=== PATIENT | female | born 1935 | race Caucasian/White ===

== ENCOUNTER 2020-08-27 18:10 | Inpatient (IN) | payer MEDICARE, MEDICAID, SELFPAY ==
[2020-08-27] VITALS (8 sets, daily range): BP systolic 125–161; BP diastolic 43–88; PULSE 61–72; RESP 13–24; TEMP 36.4–36.9; O2SAT 95–99; BMI 24.7
--- NOTE | 2020-08-27 18:46 | ECG_ITS ---
[facility] Test Date: 2020-08-27 Pat Name: Asia Arroyo Department: Room: Gender: Female Engineering Laboratory Technician: : 1935 Requested By: Brandin Quinteros I Order Number: [id number] Casey MD: Jazzy Lopez M.D. Measurements Intervals [place] Rate: 68 P: 90 OR: 170 QRS: 49 QRSD: 92 T: 50 QT: 442 QTc: 472 Interpretive Statements SINUS RHYTHM WITH OCCASIONAL SUPRAVENTRICULAR PREMATURE COMPLEXES MODERATE ST DEPRESSION [0.05+ mV ST DEPRESSION] Compared to ECG 06/14/2019 09:06:16 ST (T wave) deviation now present Electronically Signed On 08-27-2020 21:46:35 NAVIGATING OFFICER by Jazzy oLpez M.D. [id number]
--- NOTE | 2020-08-27 18:46 | CTR_ITS ---
PROCEDURE INFORMATION: Exam: CT Head Without Contrast Exam date and time: 08/27/2020 6:48 PM Age: 85 years old Clinical indication: Weakness, extremity; Additional info: Symptoms of acute stroke TECHNIQUE: Imaging protocol: Computed tomography of the head without contrast. Radiation optimization: All CT scans at this facility use at least one of these dose optimization techniques: automated exposure control; mA and/or kV adjustment per patient size (includes targeted exams where dose is matched to clinical indication); or iterative reconstruction. COMPARISON: No relevant prior studies available. RADIATION DOSE METRICS: Total DLP (mGy-cm): 894.03 FINDINGS: Brain: There is a 12 x 26 mm sized oval area of hypodensity in the right basal ganglia which is worrisome for recent (acute or subacute) infarct. There is focal encephalomalacia in the right frontal lobe in keeping with chronic cortical infarct. No hemorrhage is identified. Cerebral ventricles: No ventriculomegaly. Bones/joints: Unremarkable. No acute fracture. Paranasal sinuses: Visualized sinuses are unremarkable. No fluid levels. Mastoid air cells: Visualized mastoid air cells are well aerated. Soft tissues: Unremarkable. CT/CT head wo con* [id number] IMPRESSION: 1. Acute or subacute infarct in the right basal ganglia region. 2. Old right frontal infarct. Radiation Dose CTDIVOL = (mGy): DLP = 894.03 (mGy-cm)
--- NOTE | 2020-08-27 18:46 | XR_ITS ---
WS: [id number] Portable AP upright chest, 08/27/2020 Clinical Data: stroke like symptoms Comparison: Portable chest, 06/14/2019. Findings: No nodules, masses or effusions are seen. The heart is normal. The pulmonary vascularity is not increased. No pneumonia or pneumothorax is seen. The aortic arch and descending aorta show calci fication and tortuosity. Monitor leads on the chest wall. XR/XR chest 1V portable [id number] Impression: Atherosclerosis.
[2020-08-27 19:01] LABS: Basophils # 0.1 10^3/uL (0.0-0.1); Basophils % 0.8 %; Eosinophils % 0.3 %; Hemoglobin 11.7 g/dL (11.5-15.3); Lymphocytes # 1.1 10^3/uL (0.8-4.8); Lymphocytes % 9.7 %; Mean Corpuscular HGB Conc 31.6 g/dL (30.0-36.0); Mean Corpuscular Hemoglobin 26.9 pg (28.0-34.0); Mean Corpuscular Volume 85.1 fL (81-99); Mean Platelet Volume 10.7 fL (7.4-10.4); Monocytes # 0.7 10^3/uL (0.2-0.9); Monocytes % 5.9 %; Neutrophils # 9.55 10^3/uL (1.8-7.7); Nucleated Red Blood Cells % 0 %; Platelet Count 265 10^3/cmm (130-400); Red Blood Count 4.35 10^6/uL (4.1-5.3); Red Cell Distribution Width 13.9 % (12.1-15.1); White Blood Count 11.5 10^3/uL (4.0-10.0)
[2020-08-27 19:24] LABS: Add Urine Microscopic? NO
[2020-08-27 19:24] LABS: INR 1.05 (0.8-1.2); Partial Thromboplastin Time 25.4 SECONDS (23.9-36.7)
[2020-08-27 19:27] LABS: Bilirubin Urine Neg (Negative); Blood Urine Neg (Negative); Glucose Urine UA Norm (Normal); Ketones Urine Negative (Negative); Leukocyte Esterase Urine Negative (Negative); Nitrate Urine Negative (Negative); Protein Urine Neg (Negative); Specific Gravity, Urine 1.005 (1.005-1.030); Urine Appearance Clear (CLEAR); Urine Color Yellow (Yellow); Urobilinogen Urine Norm (Negative); pH Urine 7 (5-7)
[2020-08-27 19:36] LABS: Amphetamines Screen Urine Negative (Negative); Barbiturates Screen Urine Negative (Negative); Benzodiazepines Screen Urine Negative (Negative); Cocaine Screen Urine Negative (Negative); Opiate Screen Urine Negative (Negative); PCP Screen Urine Negative (Negative); THC Screen Urine Negative (Negative)
[2020-08-27 19:37] LABS: Alanine Aminotransferase 13 U/L (0-33); Albumin Level 4.1 g/dL (3.5-5.2); Alkaline Phosphatase 65 IU/L (35-105); Anion Gap 16.4 (5-19); Aspartate Amino Transferase 18 U/L (0-32); Blood Urea Nitrogen 11 mg/dL (8-23); Calcium 8.9 mg/dL (8.5-10.5); Carbon Dioxide 26 mmol/L (22-29); Chloride 97 mmol/L (98-107); Creatinine Clr Calc Pharmacy 46.9729; Globulin 3.5 g/dL (1.3-4.6); Glucose 146 mg/dL (65-115); Osmolality Calculated 284 mOsm/kg (285-295); Potassium 3.4 mmol/L (3.5-5.1); Sodium 136 mmol/L (136-145); Total Bilirubin 0.4 mg/dL (0.15-1.2); Total Protein 7.6 g/dL (6.6-8.7)
--- NOTE | 2020-08-27 20:44 | P.HP_ITS ---
Providers/Chief Complaint Primary Care Provider: Jameel Scott MD Chief Complaint: FALL/ WEAKNESS History of Present Illness Asia Arroyo is a 85 year old female with a history of diabetes and chronic atrial fibrillation on antiarrhythmic therapy was brought to the emergency department because her son found her on the floor. Patient is reported to have fallen multiple times today. His son noted mild slurred speech, mild left fac ial droop. According to the son, patient was seen last normal yesterday late evening. CT head done in the emergency department demonstrates no acute infarct in the right basal ganglia and old right frontal infarct. Examination in the ED revealed left upper extremity weakness. Patient is considered out of the window for TPA. She is hospitalized for further management. Review of Systems Narrative: Except as documented, all other systems reviewed and negative. Medications/Allergies Home Medications Medication Instructions Recorded Confirmed Last Taken Type furosemide 40 mg tablet 40 mg PO DAILY@0700 11/04/19 08/27/20 08/27/20 History metformin 500 mg tablet 500 mg PO BID@07,18 11/04/19 08/27/20 08/27/20 History potassium chloride 20 mEq 20 meq PO DAILY@0700 11/04/19 08/27/20 08/27/20 History tablet,extended release(part/cryst) sotalol 80 mg PO BID@0700,1800 08/27/20 08/27/20 08/27/20 History Allergies Allergy/AdvReac Type Severity Reaction Status Date / Time Sulfa (Sulfonamide Allergy unk Verified 08/27/20 18:18 Antibiotics) PFSH Acute PFSH: Medical History (Updated 08/27/20 @ 23:37 by Brandin Quinteros MD, [facility] [place]) Atrial fibrillation Diabetes Diastolic CHF HTN (hypertension) Family History (Reviewed 08/27/20 @ 23:25 by Brandin Quinteros MD, [facility] [place]) Mother Diabetes Social History (Reviewed 08/27/20 @ 23:25 by Brandin Quinteros MD, [facility] [place]) Smoking and tobacco status: never smoked Alcohol intake: never Lives independently: Yes Marital status: / Vitals/I&O/Wt Last Vital Signs Temp 98.5 F 08/27/20 18:13 Pulse 72 08/27/20 20:00 Resp 21 H 08/27/20 20:00 BP 161/52 08/27/20 20:00 Pulse Ox 99 08/27/20 20:00 Weight last 48 hrs Weight 63.503 kg Physical Exam Const: COMMON NORMALS: no acute distress and patient oriented x3 GENERAL APPEARANCE: cooperative and comfortable HENMT: COMMON NORMALS: normocephalic, atraumatic, moist oral mucous membranes and oropharynx normal Eye: COMMON NORMALS: Equal, round and reactive pupils present, EOMs intact bilaterally, conjunctivae normal and no scleral icterus Neck/C-Spine: COMMON NORMALS: full ROM, no lymphadenopathy and No carotid bruits Lymph: LYMPHATIC: no lymphadenopathy noted Chest: COMMONS NORMALS: normal inspection of the chest CHEST: Yes Symmetrical chest wall rise Resp: COMMON NORMALS: normal respiratory effort, No use of accessory muscles and clear to auscultation bilaterally Cardio: COMMON NORMALS: regular rate, regular rhythm, S1 normal heart sound present and S2 normal heart sound present GI: COMMON NORMALS: Normal to inspection, nondistended, normoactive bowel sounds present, Soft to palpation, non-tender, No hepatosplenomegaly present and no bruits Back/Pelvis: COMMON NORMALS: no CVA tenderness, no thoracic nor lumbar tenderness and thoraco-lumbar ROM normal Extremity: COMMON NORMALS: normal to inspection, full ROM and no clubbing, c yanosis or edema Neuro: COMMON NORMALS: patient oriented x3 CRANIAL NERVES: Yes other (Mild left facial droop.) MOTOR EXAM: Other motor observations present (Motor in l eft upper extremity- 4/5, 5/5 in all other extremities. ) Psych: COMMON NORMALS: mental status grossly normal, Normal thought process present and cooperative SPEECH: Yes slurred (Mild slurred) Data : 08/28/20 05:01 08/28/20 05:01 A&P Assessment and plan (1) Acute CVA (cerebrovascular accident): Status: Acute (2) Atrial fibrillation: Status: Acute (3) Diabetes: Status: Acute (4) HTN (hypertension): Status: Acute (5) Diastolic CHF: Status: Acute Additional A&P Information Admit patient to the medical floor. Start aspirin and Lipitor. Start for anticoagulation for CVA given history of A. fib. Patient and son reported she was taking off anticoagulation due to melena about 2 years ago. She was supposed to do a colonoscopy but it was postponed because he went into atrial fibrillation during the day of surgery and it could not be done. Her hemoglobin is stable. At this point benefit of full anticoagulation outweighs risk of bleeding. Speech therapy and PT to evaluate for stroke protocol. Obtain echocardiogram and carotid Doppler. Check lipid profile. TSH and hemoglobin A1c. Permissive hypertension. Continue sotalol for A. fib Insulin sliding scale for glucose management. Hold Metformin. Attestations Medical Necessity Statement*: Patient presenting with fall and acute CVA. She will need to be hospitalized for further evaluation and management. She is expected to spend more than 2 midnights. Coding Level of Care Code Acute Refinery Process Engineer for g Fwd Exam Comprehensive Diagnoses Acute CVA (cerebrovascular accident) I63.9 Atrial fibrillation I48.91 Diabetes E11.9 HTN (hypertension) I10 Diastolic CHF I50.30
[2020-08-27] MEDS: ondansetron 2 mg/ML SDV 2 mL 4 MG IVP (22:09)
[2020-08-27] MEDS: morphine 4 mg/mL SDV 1 mL 2 MG IVP (22:11)
--- NOTE | 2020-08-27 23:21 | W.ED.NEUROSD ---
HPI - Neuro Symptoms/Deficit General: Chief Complaint: Fall Stated Complaint: FALL/ WEAKNESS Time Seen by Provider: 08/27/20 18:11 Source: patient and family (son) Mode of arrival: EMS Limitations: no limitations History of Present Illness: HPI Narrative: The patient is an 85-year-old female patient with a prior history of atrial fibrillation according to her son who presents to the emergency department with with complaints of right lower extremity weakness. She said she slid down her chair twice today. The first time was about 8 AM this morning and the other time was this afternoon. She was very reassured to make sure that she is stressed that she did not fall but just slid down the couch. Her son last saw her yesterday and she was fine. Today he said when he saw her he noticed that her speech was slurred, she had a mild right facial droop, and appeared to be weaker in her right lower extremity. He was concerned about a stroke and brought her in to be evaluated. Location: speech, right face and right leg History of same: No Severity: moderate Quality: weak Relieving factors: none Exacerbating factors: none Associated symptoms: Reports headache(s); Deny chest pain, cough, diaphoresis, fevers/chills, anorexia, malaise, nausea, seizures, short of breath, syncope, tingling, vertigo or vomiting Treatments Prior to Arrival: none Review of Systems General: Reports: 10 or more systems reviewed and unremarkable except in HPI and below Const: Denies: malaise or diaphoresis Eyes: Denies: change in vision or blurry vision ENMT: Denies: throat pain, enlarged tonsils, odynophagia, hoarseness, mouth pain or swelling of lips/tongue Card: Denies: chest pain or syncope Resp: Denies: dyspnea, productive cough or non-productive cough GI: Denies: nausea or vomiting : Denies: flank pain, difficulty voiding, dysuria, urinary frequency, urinary urgency or urinary hesitancy Musc: Denies: neck pain, back pain or extremity swelling Skin/Breast: Denies: rash, pruritus or erythema Neuro: Reports: headache(s); Denies: vertigo Endo: Denies: polyuria, polydipsia or tired all the time [facility] ED PFSH: Medical History (Updated 08/27/20 @ 23:37 by Brandin Vernon MD, [facility] [place]) Atrial fibrillation Diabetes Diastolic CHF HTN (hypertension) Family History (Reviewed 08/27/20 @ 23:25 by Brandin Vernon MD, [facility] [place]) Mother Diabetes Social History (Reviewed 08/27/20 @ 23:25 by Brandin Vernon MD, [facility] [place]) Smoking and tobacco status: never smoked Alcohol intake: never Lives independently: Yes Marital status: / NIH stroke score NIHSS: Level Of Consciousness - 1a: 0 Level Of Consciousness Questions - 1b: Both Correct Level Of Consciousness Commands - 1c: Both Correct Best Gaze - 2: Normal Visual Fried - 3: No Visual Loss Facial Palsy - 4: Minor Paralysis Motor Arm Right - 5: No Drift Motor Arm Left - 5: Drift Motor Leg Right - 6: No Effort Against Danielson Motor Leg Left - 6: No Drift Limb Ataxia - 7: Absent Sensory - 8: Normal Best Language - 9: No Aphasia Dysarthia - 10: Mild/Moderate Dysarthia Extinction And Inattention - 11: 0 Score: Total Score: 6 Physical Exam Const: COMMON NORMALS: no acute distress, average body habitus, patient oriented x3, no limitations, healthy appearing, alert and well nourished HENMT: COMMON NORMALS: normocephalic, atraumatic and moist oral mucous membranes HEAD & SCALP: normocephalic and atraumatic Eye: COMMON NORMALS: Equal, round and reactive pupils present, EOMs intact bilaterally, conjunctivae normal and no scleral icterus CONJUNCTIVA: Yes conjunctivae normal PUPIL: Yes Equal, round and reactive pupils present Neck/C-Spine: COMMON NORMALS: full ROM, supple, no meningeal signs, no JVD and No carotid bruits Resp: COMMON NORMALS: normal respiratory effort, No retractions, No use of accessory muscles, clear to auscultation bilaterally and percussion normal AUSCULTATION: clear to auscultation bilaterally PERCUSSION: percussion normal Cardio: COMMON NORMALS: no JVD, regular rate, regular rhythm, S1 normal heart sound present, S2 normal heart sound present, No gallops present (Cardio), No clicks present (Cardio), No murmurs present (Cardio), No rub (Cardio) and Peripheral pulses 2+ throughout RATE: regular rate RHYTHM: regular rhythm HEART SOUNDS: S1 normal heart sound present and S2 normal heart sound present PERIPHERAL PULSES: Peripheral pulses 2+ throughout GI: COMMON NORMALS: Normal to inspection, nondistended, normoactive bowel sounds present, Soft to palpation, non-tender, No hepatosplenomegaly present, no masses and no bruits PALPATION: Yes Soft to palpation and Yes No hepatosplenomegaly present Extremity: COMMON NORMALS: normal to inspection, full ROM, capillary refill normal, no calf tenderness and no pedal edema Neuro: COMMON NORMALS: patient oriented x3 SENSORIUM/ORIENTATION: Yes alert MENINGEAL SIGNS: Yes no meningeal signs Skin: COMMON NORMALS: no rashes or lesions noted, no wounds, turgor normal, no jaundice, no petechiae and no mottling GENERAL SKIN EXAM: no rashes or lesions noted and turgor normal Course Reevaluation(s): Reevaluation #1: Discussed her CT scan findings with the patient and her son. She most likely had a CVA within the last 24 hours. Advised that she be admitted to the hospital for further work-up including an MRI and carotid Doppler. The patient was reluctant but agreed to be admitted to the hospital. Time: 19:30 Consultations: Consultation #1: Discussed the patient with Dr. Calderon, hospitalist and he kindly accepted the patient to his service Time: 19:40 Vital Signs: Vital signs: Vital Signs Temperature 97.6 F 08/27/20 23:15 Pulse Rate 61 08/27/20 23:15 Respiratory Rate 15 08/27/20 23:15 Blood Pressure 150/72 08/27/20 23:15 Pulse Oximetry 97 08/27/20 23:15 MDM - Neuro Symptoms/Deficit MDM Narrative: Medical decision making narrative: 85-year-old female patient was brought into the emergency department with concerns for fall. Evaluation in the emergency department showed that she had a recent CVA and most likely according the last 24 hours as her son saw her last night and she was in her usual state of health. NIHSS score is 6, however she is out of the window for TPA. She will be managed medically. Her son said she has a history of A. fib, however she was sinus rhythm tonight. She has never been on anticoagulation. Medical Records: Attestation: I reviewed the patient's medical records. Lab Data: Attestation: I reviewed the patient's lab results. Labs: Lab Results 08/27/20 08/27/20 08/27/20 Range/Units 18:15 18:15 18:15 WBC 11.5 H (4.0-10.0) 10^3/ uL RBC 4.35 (4.1-5.3) 10^6/u L Hgb 11.7 (11.5-15.3) g/dL Hct 37.0 (37.0-47.0) % MCV 85.1 (81-99) fL MCH 26.9 L (28.0-34.0) pg MCHC 31.6 (30.0-36.0) g/dL RDW 13.9 (12.1-15.1) % Plt Count 265 (130-400) 10^3/c mm MPV 10.7 H (7.4-10.4) fL Neut % (Auto) 83.0 % Lymph % (Auto) 9.7 % Levy % (Auto) 5.9 % Eos % (Auto) 0.3 % Baso % (Auto) 0.8 % Neut # (Auto) 9.55 H (1.8-7.7) 10^3/u L Lymph # (Auto) 1.1 (0.8-4.8) 10^3/u L Levy # (Auto) 0.7 (0.2-0.9) 10^3/u L Eos # (Auto) 0.0 (0.0-0.8) 10^3/u L Baso # (Auto) 0.1 (0.0-0.1) 10^3/u L Nucleated RBC % (a uto) 0 % Nucleated RBCs # 0.0 /100WBC PT 14.00 (12.1-14.9) SECO NDS INR 1.05 (0.8-1.2) APTT 25.4 (23.9-36.7) SECO NDS Sodium 136 (136-145) mmol/L Potassium 3.4 L (3.5-5.1) mmol/L Chloride 97 L (98-107) mmol/L Carbon Dioxide 26 (22-29) mmol/L Anion Gap 16.4 (5-19) BUN 11 (8-23) mg/dL Creatinine 0.7 (0.5-0.9) mg/dL GFR Calculation Not Reportable Glucose 146 H (65-115) mg/dL Calculated Osmolal ity 284 L (285-295) mOsm/k g Calcium 8.9 (8.5-10.5) mg/dL Total Bilirubin 0.4 (0.15-1.2) mg/dL AST 18 (0-32) U/L ALT 13 (0-33) U/L Alkaline Phosphata se 65 (35-105) IU/L Total Protein 7.6 (6.6-8.7) g/dL Albumin 4.1 (3.5-5.2) g/dL Globulin 3.5 (1.3-4.6) g/dL Urine Color (Yellow) Urine Appearance (CLEAR) Urine pH (5-7) Ur Specific Gravit y (1.005-1.030) Urine Protein (Negative) Urine Glucose (UA) (Normal) Urine Ketones (Negative) Urine Blood (Negative) Urine Nitrate (Negative) Urine Bilirubin (Negative) Urine Urobilinogen (Negative) mg/dL Ur Leukocyte Tika ase (Negative) Urine Opiates Scre en (Negative) ng/mL Ur Barbiturates Sc reen (Negative) ng/mL Ur Phencyclidine S crn (Negative) ng/mL Ur Amphetamines Sc reen (Negative) ng/mL U Benzodiazepines Scrn (Negative) ng/mL Urine Cocaine Scre en (Negative) ng/mL U Marijuana (THC) Screen (Negative) ng/mL 08/27/20 08/27/20 Range/Units 19:12 19:12 WBC (4.0-10.0) 10^3/ uL RBC (4.1-5.3) 10^6/u L Hgb (11.5-15.3) g/dL Hct (37.0-47.0) % MCV (81-99) fL MCH (28.0-34.0) pg MCHC (30.0-36.0) g/dL RDW (12.1-15.1) % Plt Count (130-400) 10^3/c mm MPV (7.4-10.4) fL Neut % (Auto) % Lymph % (Auto) % Levy % (Auto) % Eos % (Auto) % Baso % (Auto) % Neut # (Auto) (1.8-7.7) 10^3/u L Lymph # (Auto) (0.8-4.8) 10^3/u L Levy # (Auto) (0.2-0.9) 10^3/u L Eos # (Auto) (0.0-0.8) 10^3/u L Baso # (Auto) (0.0-0.1) 10^3/u L Nucleated RBC % (a uto) % Nucleated RBCs # /100WBC PT (12.1-14.9) SECO NDS INR (0.8-1.2) APTT (23.9-36.7) SECO NDS Sodium (136-145) mmol/L Potassium (3.5-5.1) mmol/L Chloride (98-107) mmol/L Carbon Dioxide (22-29) mmol/L Anion Gap (5-19) BUN (8-23) mg/dL Creatinine (0.5-0.9) mg/dL GFR Calculation Glucose (65-115) mg/dL Calculated Osmolal ity (285-295) mOsm/k g Calcium (8.5-10.5) mg/dL Total Bilirubin (0.15-1.2) mg/dL AST (0-32) U/L ALT (0-33) U/L Alkaline Phosphata se (35-105) IU/L Total Protein (6.6-8.7) g/dL Albumin (3.5-5.2) g/dL Globulin (1.3-4.6) g/dL Urine Color Yellow (Yellow) Urine Appearance Clear (CLEAR) Urine pH 7 (5-7) Ur Specific Gravit y 1.005 (1.005-1.030) Urine Protein Neg (Negative) Urine Glucose (UA) Norm (Normal) Urine Ketones Negative (Negative) Urine Blood Neg (Negative) Urine Nitrate Negative (Negative) Urine Bilirubin Neg (Negative) Urine Urobilinogen Norm (Negative) mg/dL Ur Leukocyte Tika ase Negative (Negative) Urine Opiates Scre en Negative (Negative) ng/mL Ur Barbiturates Sc reen Negative (Negative) ng/mL Ur Phencyclidine S crn Negative (Negative) ng/mL Ur Amphetamines Sc reen Negative (Negative) ng/mL U Benzodiazepines Scrn Negative (Negative) ng/mL Urine Cocaine Scre en Negative (Negative) ng/mL U Marijuana (THC) Screen Negative (Negative) ng/mL Imaging Data^: CT Head: Attestation: I personally reviewed and interpreted this imaging study as follows: Radiologist's impression: [address] [address] [address] Scan Report Signed with Pollo Patient: Asia Arryoo #: [id number] : 1935cct#:[id number] Age/Sex: 85 / FADM Date: 08/27/20 Loc: ERRoom/Bed: Attending Dr: Ordering Provider/Ordering MD: Brandin Vernon MD, [facility] – [place] Date of Service: 08/27/20 Procedure(s): CT head wo con* [id number] Accession Number(s): [id number] Report Number: [id number]/CT head wo con* [id number] Addendum: THIS REPORT CONTAINS FINDINGS THAT MAY BE CRITICAL TO PATIENT CARE. The findings were verbally communicated via telephone conference with BRANDIN VERNON at 7:28 PM [employer] STENOGRAPHER on 08/27/2020. The findings were acknowledged and understood. Radiation Dose CTDIVOL = (mGy): DLP = 894.03 (mGy-cm) Addendum Dictated By: Bj Earl Addendum Signed By: Trae Earl Date/Time:08/27/201929 Addendum Cosigned By: PROCEDURE INFORMATION: Exam: CT Head Without Contrast Exam date and time: 08/27/2020 6:48 PM Age: 85 years old Clinical indication: Weakness, extremity; Additional info: Symptoms of acute stroke TECHNIQUE: Imaging protocol: Computed tomography of the head without contrast. Radiation optimization: All CT scans at this facility use at least one of these dose optimization techniques: automated exposure control; mA and/or kV adjustment per patient size (includes targeted exams where dose is matched to clinical indication); or iterative reconstruction. COMPARISON: No relevant prior studies available. RADIATION DOSE METRICS: Total DLP (mGy-cm): 894.03 FINDINGS: Brain: There is a 12 x 26 mm sized oval area of hypodensity in the right basal ganglia which is worrisome for recent (acute or subacute) infarct. There is focal encephalomalacia in the right frontal lobe in keeping with chronic cortical infarct. No hemorrhage is identified. Cerebral ventricles: No ventriculomegaly. Bones/joints: Unremarkable. No acute fracture. Paranasal sinuses: Visualized sinuses are unremarkable. No fluid levels. Mastoid air cells: Visualized mastoid air cells are well aerated. Soft tissues: Unremarkable. CT/CT head wo con* [id number] IMPRESSION: 1. Acute or subacute infarct in the right basal ganglia region. 2. Old right frontal infarct. Radiation Dose CTDIVOL = (mGy): DLP = 894.03 (mGy-cm) Dictated By:Bj Earl Signed By:Padmini Earligned Date/Time:08/27/201927 DD/ 26 EKG Data^: EKG 1: Attestation: I personally reviewed and interpreted this EKG as follows: EKG interpretation date: 08/27/20 EKG interpretation time: 20:51 Prior EKG tracings: not available for review Interpretation: Sinus rhythm. Heart rate [address] changes. Discharge Plan Discharge Patient Disposition: Admitted As Inpatient Admit Provider: Efrain Calderon Clinical Impression: Acute CVA (cerebrovascular accident) Condition: Stable Coding Level of Care Code ED College Or [employer] Faculty Member for Milly Coates
--- NOTE | 2020-08-28 00:19 | PC.NURSE ---
Patient stated that she needed to use the bathroom. This nurse instructed the Aid to place the patient on a bed dyer. Patient refused. Patient has fallen multiple times yesterday which is what lead her to the Hospital.
[2020-08-28] MEDS: apixaban 5 mg Tablet PO ×3 (00:47→20:38)
[2020-08-28] MEDS: sodium chloride 0.9% 1,000 ML 50 ML IV ×2 (00:47→20:39)
[2020-08-28] MEDS: atorvastatin 40 mg Tablet PO ×2 (00:47→20:38)
[2020-08-28 00:48] LABS: Glucose Point of Care 128 mg/dL (70-110)
[2020-08-28] MEDS: trazodone 50 mg Tablet PO (02:26)
[2020-08-28 04:00] VITALS: BP 111/53; PULSE 58; RESP 18; TEMP 36.6; O2SAT 98
--- NOTE | 2020-08-28 05:00 | USCV_ITS ---
Asia Arroyo Age: 85 Gender: F : 1935 Exam Date: 08/28/2020 13:25 Ordering Phys: Efrain Calderon MD Technologist: Mckenzie Galdamez [place] [facility] [place] [place]: acute cva BP: 146 / 56 HR: 58 Rhythm: Sinus Technical Quality: Adequate MEASUREMENTS (Male / Female) Normal Values 2D ECHO LV Diastolic Diameter PLAX 4.6 cm 4.2 - 5.9 / 3.9 - 5.3 cm LV Systolic Diameter PLAX 3.4 cm LV Chamber Size 2.8 cm IVS Diastolic Thickness 1.0 cm 0.6 - 1.0 / 0.6 - 0.9 cm IVS Systolic Thickness 1.4 cm LVPW Diastolic Thickness 2.0 cm 0.6 - 1.0 / 0.6 - 0.9 cm LVPW Systolic Thickness 2.4 cm RV Chamber Size 2.1 cm LVOT Diameter 2.0 cm LV Ejection Fraction 2D Teich 38.6 % LV Ejection Fraction MOD 2C 41.2 % LV Ejection Fraction 2C AL 39.8 % LA Diameter 4.3 cm LA Width 3.9 cm LA Height 5.3 cm RA Width 3.5 cm RA Height 4.8 cm Aorta at Sinotubular Diameter 2.5 cm M-MODE LV Diastolic Diameter MM 6.6 cm 4.2 - 5.9 / 3.9 - 5.3 cm LV Systolic Diameter MM 5.2 cm LV Ejection Fraction MM Teich 42.0 % IVS Diastolic Thickness MM 0.8 cm 0.6 - 1.0 / 0.6 - 0.9 cm IVS Systolic Thickness MM 1.5 cm LVPW Diastolic Thickness MM 1.3 cm 0.6 - 1.0 / 0.6 - 0.9 cm LVPW Systolic Thickness MM 1.4 cm Aortic Annulus Diameter 2.9 cm LA Ao Ratio MM 1.5 MV E Point Septal Separation 1.0 cm DOPPLER AV Peak Velocity 156.0 cm/s LVOT Peak Velocity 111.0 cm/s AV Area Cont Eq vti 2.9 cm squared AV Area Cont Eq pk 2.3 cm squared MV Area PHT 3.5 cm squared Mitral E to A Ratio 1.6 MV E' Velocity 51.5 cm/s Mitral E to MV E' Ratio 8.6 Mitral E to LV E' Lateral Ratio 10.4 Mitral E to LV E' Septal Ratio 7.4 TR Peak Velocity 255.0 cm/s TR Peak Gradient 26.0 mmHg TV Peak E Velocity 70.0 cm/s Right Atrial Pressure 3.0 mmHg Pulmonary Artery Systolic Pressu 29.0 mmHg PV Peak Velocity 84.0 cm/s RV Acceleration Time 0.1 s RV Ejection Time 0.4 s RV AcT/ET 0.2 FINDINGS Left Ventricle Normal left ventricular cavity size. Normal left ventricular systolic function. No regional wall motion abnormalities. Left ventricular ejection fraction is estimated at 55 %. Grade II/IV diastolic dysfunction, moderately elevated filling pressures. Right Ventricle The right ventricle is normal in size and function. Right Atrium The right atrium is normal in size. Left Atrium Severely increased left atrial size. Mitral Valve Mildly thickened mitral valve. No mitral valve stenosis. Moderate mitral valve regurgitation. Aortic Valve Moderate aortic valve calcification. No aortic valve stenosis. Mild aortic valve regurgitation. Tricuspid Valve Structurally normal tricuspid valve without significant stenosis or regurgitation. Pulmonary artery systolic pressure is normal. Pulmonic Valve Structurally normal pulmonic valve without significant stenosis. There is no pulmonic regurgitation. Pericardium Normal pericardium without effusion. Aorta Normal ascending aorta dimension. CONCLUSIONS 1-Normal left ventricular cavity size. Normal left ventricular systolic function. No regional wall motion abnormalities. Left ventricular ejection fraction is estimated at 55 %. Grade II/IV diastolic dysfunction, moderately elevated filling pressures. 2-Severely increased left atrial size. 3-Mildly thickened mitral valve. No mitral valve stenosis. Moderate mitral valve regurgitation. 4-Moderate aortic valve calcification. No aortic valve stenosis. Mild aortic valve regurgitation. 5-There is no pericardial effusion. 6-Pulmonary artery systolic pressure is within normal limits. 7-Right atrial pressure is around 5 mm of mercury. 8-No significant change since the prior echocardiogram study of 01/31/2019. Guy De Leon MD (Electronically Signed) Final Date: 28 August 2020 18:04 S
--- NOTE | 2020-08-28 05:00 | USCV_ITS ---
Asia Arroyo Age: 85 Gender: F : 1935 Exam Date: 08/28/2020 06:31 Ordering Phys: Efrain Calderon MD Technologist: Brenda Morris Exam Location: [facility] – [place] Indication: ACUTE CVA Risk Factors: Previous Vascular Surgery: Right Brachial BP: / Left Brachial BP: / Right Left Velocity (cm/s) Spectral Plaque Velocity (cm/s) Spectral Plaque Syst/Diast Broadening Syst/Diast Broadening 110.30/6.60 Prox CCA 113.10/ 13.10 81.20/ 9.40 Mid CCA 80.30 / 11.10 72.60/ 12.00 Distal CCA 82.00 / 14.50 85.40/ 16.20 Prox ICA 61.10 / 12.80 81.90/ 12.70 Mid ICA 87.10 / 21.40 63.40/ 12.50 Distal ICA 82.10 / 19.70 85.40 ECA 92.40 0.78 ICA/CCA 0.77 Antegrade Vertebral Antegrade 36.50/ 9.30 cm/s 48.90/ 10.20 cm/s Tri Subclavian Tri 96.60 134.5 0 FINDINGS Comparison:. 8//19. No significant elevation of systolic or diastolic velocities. Waveforms are normal. Mixture of calcified and noncalcified plaque in the bifurcations. CONCLUSIONS Bilateral ICA stenosis less than 50%. No interval change in stenosis since prior exam. Dr. Maggie Rose DO (Electronically Signed) Final Date: 28 August 2020 08:56 S
[2020-08-28 05:44] LABS: Basophils # 0.1 10^3/uL (0.0-0.1); Basophils % 0.6 %; Eosinophils # 0.1 10^3/uL (0.0-0.8); Eosinophils % 1.5 %; Hematocrit 31.1 % (37.0-47.0); Hemoglobin 9.9 g/dL (11.5-15.3); Lymphocytes # 1.6 10^3/uL (0.8-4.8); Lymphocytes % 19.9 %; Mean Corpuscular HGB Conc 31.8 g/dL (30.0-36.0); Mean Corpuscular Hemoglobin 26.8 pg (28.0-34.0); Mean Corpuscular Volume 84.3 fL (81-99); Mean Platelet Volume 10.9 fL (7.4-10.4); Monocytes # 0.6 10^3/uL (0.2-0.9); Monocytes % 7.1 %; Neutrophils # 5.75 10^3/uL (1.8-7.7); Neutrophils % 70.5 %; Nucleated Red Blood Cells % 0 %; Platelet Count 234 10^3/cmm (130-400); Red Blood Count 3.69 10^6/uL (4.1-5.3); Red Cell Distribution Width 14.1 % (12.1-15.1); White Blood Count 8.2 10^3/uL (4.0-10.0)
[2020-08-28 06:10] LABS: Anion Gap 11.2 (5-19); Blood Urea Nitrogen 10 mg/dL (8-23); Calcium 8.3 mg/dL (8.5-10.5); Carbon Dioxide 28 mmol/L (22-29); Chloride 98 mmol/L (98-107); Cholesterol 151 mg/dL (0-200); Creatinine Clr Calc Pharmacy 46.9729; Glucose 116 mg/dL (65-115); HDL Cholesterol 58 mg/dL (60-100); LDL Cholesterol Calculated 81 mg/dL (50-129); Magnesium 1.8 mg/dL (1.7-2.3); Osmolality Calculated 278 mOsm/kg (285-295); Potassium 3.2 mmol/L (3.5-5.1); Sodium 134 mmol/L (136-145); Thyroid Stimulating Hormone 3.36 uIU/mL (0.27-4.20); Triglycerides 59 mg/dL (0-150)
[2020-08-28 06:12] LABS: Estmated Average Glucose 117; Hemoglobin A1C 5.7 % (4.0-6.0)
[2020-08-28] MEDS: sotalol 80 mg Tablet PO ×2 (06:52→18:46)
[2020-08-28 07:02] VITALS: BP 135/64; PULSE 63; RESP 16; TEMP 36.7; O2SAT 96
[2020-08-28 07:12] LABS: Glucose Point of Care 139 mg/dL (70-110)
[2020-08-28 10:16] LABS: Glucose Point of Care 147 mg/dL (70-110)
[2020-08-28] MEDS: aspirin 81 mg EC Tablet 162 MG PO (10:42)
[2020-08-28 11:31] VITALS: BP 146/56; PULSE 57; RESP 16; TEMP 36.6; O2SAT 96
[2020-08-28 13:00] VITALS: RESP 17
--- NOTE | 2020-08-28 13:32 | PC.CHAP ---
Pastoral Care Encounter/Spiritual Assessment Type of Contact [] Declined wire photo operator news visit [] Patient/Family/Request visit [] Outpatient visit [] Follow-up visit [] Physician referral [] Code/Alert [xx] Routine visit [] Staff referral [] Actively dying [] Patient sleeping [] Family support [] [] Out of room [] Palliative care [] [] Receiving care in room [] Pre-surgical visit [] Trauma [] Long length of stay [] ICU visit [] Other: Relational/Emotional Strength [xx] Patient feels connected with others/family/visitors/staff [] Distress [] Loneliness/isolation [] Abandonment Spirituality of Patient [xx] Person of Marilin [] Attends Alevism of their Marilin [xx] Believes in Prayer [xx] Reads Bible or Latter Day materials [] There are Spiritual issues to be addressed Paper Maker Interventions [xx] Prayer [xx] Active listening [xx] Non-anxious presence [] Spiritual/emotional support [] Crisis/trauma care [] Spiritual counseling [] Bereavement support [] Provided bereavement packet [xx] Provided Bible/devotional materials [] Provided toy/stuffed animal, coloring book to patient or family member [] Provided Communion [] Anointing/[place] [] Salvation [xx] Completed spiritual assessment [] Other: Impact on Illness or Injury [] Angry [] Fearful [] Anxious [] Often cries [] Exhaustion [] Unable to work [] Unable to attend gnosticist [] Unable to walk/stand [] Unable to read [] Unable to drive [] Unable to eat/drink [] Unable to sleep [] Unable to be with family [] Patient intubated [] Other: Summary Patient gladly accepted the devotional [employer]. Patient asked wire photo operator news to get nurse to help her to bathroom or alternative. Paper Maker complied. 3 Nurses returned with wire photo operator news to room and were present for prayer. Paper Maker then left without visit so nurses could do their jobs, Time spent with patient 4 minutes
[2020-08-28 15:19] VITALS: BP 143/55; PULSE 58; RESP 17; TEMP 36.6; O2SAT 95
[2020-08-28 17:14] LABS: Glucose Point of Care 137 mg/dL (70-110)
--- NOTE | 2020-08-28 19:58 | P.PN_ITS ---
Subjective Subjective: Interval history: She is doing somewhat better. She is able to feed herself currently, although was noted to be pocketing food by ST evaluation. Does not appear to be coughing with eating. She does have some loss of coordination. There is some persistent mild left side facial droop. Her son seems to remember perhaps right-sided facial droop at home, however, documentation on admission is about the left side. After eating she asked to be transferred to bed, and it took myself and her nurse together to try to get her up, and transfer several steps from the chair, and she then had to be lifted into bed, generally weak with poor balance, leaning to the left. Vitals/I&O/Wt Last Vital Signs Temp 97.8 F 08/28/20 15:19 Pulse 58 L 08/28/20 15:19 Resp 17 08/28/20 15:19 BP 143/55 08/28/20 15:19 Pulse Ox 95 08/28/20 15:19 08/28/20 08/28/20 08/28/20 06:59 14:59 22:59 Intake Total 150 / 250 Output Total 200 / 200 Balance -50 / 50 Weight last 48 hrs Weight 63.503 kg Physical Exam Const: COMMON NORMALS: no acute distress and alert GENERAL APPEARANCE: frail appearing ORIENTATION/CONSCIOUSNESS: Yes awake HENMT: COMMON NORMALS: oropharynx normal Neck/C-Spine: COMMON NORMALS: no meningeal signs and no JVD Resp: COMMON NORMALS: normal respiratory effort and clear to auscultation bilaterally AUSCULTATION: clear to auscultation bilaterally Cardio: COMMON NORMALS: no JVD, regular rhythm, S1 normal heart sound present, S2 normal heart sound present and No murmurs present (Cardio) RHYTHM: regular rhythm HEART SOUNDS: S1 normal heart sound present and S2 normal heart sound present GI: COMMON NORMALS: Normal to inspection, nondistended, normoactive bowel sounds present, Soft to palpation and non-tender PALPATION: Yes Soft to palpation Extremity: COMMON NORMALS: no joint enlargement and no pedal edema Neuro: COMMON NORMALS: moves all extremities SENSORIUM/ORIENTATION: Yes alert MENINGEAL SIGNS: Yes no meningeal signs CRANIAL NERVES: Yes other (Mild left-sided facial droop.) COORDINATION/BALANCE: No [id number] test normal (Minimal dysmetria on the left) SENSORY EXAM: Yes Normal double simultaneous stimulation for sensation; No sensory level loss detected MOTOR EXAM: Other motor observations present (3/5 power) COORDINATION: [id number] test abnormal (Minimal dysmetria on the left) OTHER: Does not have trouble tracking. Visual bills full to confrontation. Skin: COMMON NORMALS: no rashes or lesions noted GENERAL SKIN EXAM: no rashes or lesions noted Data : 08/28/20 05:01 08/28/20 05:01 A&P Assessment and plan (1) Acute CVA (cerebrovascular accident): Acute CVA outside of TPA window. Residual left-sided facial droop. Mild dysphagia on speech therapy assessment. Continue ST. Trial of diet. Anticoagulation resumed due to atrial fibrillation. With decrease in hemo globin, down to 9.9. With history of GI bleed. Son states she takes ibuprofen sometimes as often as 3 times a week, sometimes as many as 6 tablets. Concern of elevated risk of GI bleed. They are okay with starting PPI. Will request Hemoccult. Monitor hemoglobin due to elevated risk of bleeding with anticoagulation. With atrial fibrillation today also noted to have bradycardia, heart rate down into upper 50s. Monitor on telemetry. Currently on sotalol. If heart rate is decreasing further, may need to adjust dose. Permissive hypertension. Carotid Doppler, echocardiography. Continue aspirin, add statin. Status: Acute (2) Acute anemia: Will hemoglobin decreased down to 9.9 from 11.7. Started on antic oagulation. History of GI bleed. Son also reports fairly extensive NSAID use. Ibuprofen 3 times weekly, sometimes as many as 6 tablets. Discussed with her and her son to discontinue use. Normocytic anemia. Possible GI bleeding. Possible NSAID induced gastritis. Start PPI 40 mg twice a day. Recheck hemoglobin. Check Hemoccult. Due to risk of recurrent stroke requires anticoagulation. Monitor closely. Status: Acute (3) Bradycardia: Atrial fibrillation, on sotalol. Currently bradycardia, heart rates in the high 50s. Concern is whether some of her generalized weakness may have been secondary to worse bradycardia at home. Monitor on telemetry for now. In case of worsening bradycardia may need to decrease sotalol dose. Replace hypokalemia. Hypomagnesemia. Status: Acute (4) Atrial fibrillation: Continue sotalol. Restarted on Eliquis. Status: Acute (5) Diabetes: Sliding scale insulin. Metformin on hold for now. Status: Acute (6) HTN (hypertension): Blood pressures Status: Acute (7) Diastolic CHF: Appears to be compensated, monitor blood pressures. Status: Acute (8) Declining functional status: Son states she was previously independently functional, very sharp, now with quite significant functional decline. During my visit she requires 2 person assist to transfer from chair to bed several steps, and has to be lifted up into the bed. UA appears without suggestion of UTI. TSH normal. Urine drug screen unremarkable. Acute CVA with left-sided weakness, some loss of coordination, mild dysmetria. Noted dysphagia. Lives alone and at this time does not have anyone who could provide assistance. PT and OT ordered. Discharge planning consulted. Status: Acute Attestations Medical Necessity Statement*: Continue admission for assessment of management of acute CVA, requiring initiation of anticoagulation with atrial fibrillation, acute anemia with GI bleeding, bradycardia, replacement of electrolyte deficiencies in a lady with significant functional decline, currently unable to live independently. Disposition planning. Coding Level of Care Code Acute Substance Abuse Clinician for Milly Coates Diagnoses Acute CVA (cerebrovascular accident) I63.9 Acute anemia D64.9 Bradycardia R00.1 Atrial fibrillation I48.91 Diabetes E11.9 HTN (hypertension) I10 Diastolic CHF I50.30 Declining functional status R53.81
[2020-08-28 20:00] VITALS: BP 159/69; PULSE 68; RESP 17; TEMP 37.3; O2SAT 96
[2020-08-28 20:25] LABS: Glucose Point of Care 142 mg/dL (70-110)
[2020-08-28] MEDS: potassium chloride ER 20 mEq Tablet PO (20:38)
[2020-08-28] MEDS: magnesium sulfate premix 2 GM/50 ML PIGGYBACK IV (20:38)
[2020-08-28] MEDS: pantoprazole DR 40 mg Tablet PO (20:38)
[2020-08-28 22:26] LABS: Hemoglobin 10.1 g/dL (11.5-15.3)
[2020-08-29] VITALS (9 sets, daily range): BP systolic 109–158; BP diastolic 58–79; PULSE 62–80; RESP 14–18; TEMP 36.5–37.2; O2SAT 94–97
[2020-08-29] MEDS: sotalol 80 mg Tablet PO ×2 (06:12→17:31)
[2020-08-29 06:41] LABS: Glucose Point of Care 115 mg/dL (70-110)
[2020-08-29] MEDS: aspirin 81 mg EC Tablet 162 MG PO (09:33)
[2020-08-29] MEDS: apixaban 5 mg Tablet PO ×2 (09:33→20:48)
[2020-08-29] MEDS: pantoprazole DR 40 mg Tablet PO ×2 (09:34→17:31)
--- NOTE | 2020-08-29 10:24 | P.PN_ITS ---
Subjective Subjective: Interval history: Denies any new symptoms today. Denies any worsening of numbness or weakness. No vision changes. He has not noticed any bleeding. Vitals/I&O/Wt Last Vital Signs Temp 98.2 F 08/29/20 08:00 Pulse 78 08/29/20 08:00 Resp 18 08/29/20 08:00 BP 111/79 08/29/20 08:00 Pulse Ox 97 08/29/20 04:00 08/28/20 08/29/20 08/29/20 22:59 06:59 14:59 Intake Total 1043.333 / 1043.333 240 / 240 Output Total 150 / 150 Balance 893.333 / 893.333 240 / 240 Weight last 48 hrs Weight 63.503 kg Physical Exam Const: COMMON NORMALS: no acute distress and alert GENERAL APPEARANCE: frail appearing ORIENTATION/CONSCIOUSNESS: Yes awake OTHER: Reclined in bed. HENMT: COMMON NORMALS: oropharynx normal Neck/C-Spine: COMMON NORMALS: no meningeal signs and no JVD Resp: COMMON NORMALS: normal respiratory effort and clear to auscultation bilaterally AUSCULTATION: clear to auscultation bilaterally Cardio: COMMON NORMALS: no JVD, regular rhythm, S1 normal heart sound present, S2 normal heart sound present and No murmurs present (Cardio) RHYTHM: regular rhythm HEART SOUNDS: S1 normal heart sound present and S2 normal heart sound present GI: COMMON NORMALS: Normal to inspection, nondistended, normoactive bowel sounds present, Soft to palpation and non-tender PALPATION: Yes Soft to palpation Extremity: COMMON NORMALS: no joint enlargement and no pedal edema Neuro: COMMON NORMALS: moves all extremities SENSORIUM/ORIENTATION: Yes alert MENINGEAL SIGNS: Yes no meningeal signs CRANIAL NERVES: Yes other (Mild left-sided facial droop.) COORDINATION/BALANCE: No [id number] test normal (Minimal dysmetria on the left) SENSORY EXAM: Yes Normal double si multaneous stimulation for sensation; No sensory level loss detected MOTOR EXAM: Other motor observations present (3/5 power) COORDINATION: [id number] test abnormal (Minimal dysmetria on the left) OTHER: Does not have trouble tracking. Visual bills full to confrontation. Skin: COMMON NORMALS: no rashes or lesions noted GENERAL SKIN EXAM: no rashes or lesions noted Data : 08/28/20 21:52 08/28/20 05:01 A&P Assessment and plan (1) Acute anemia: Requires anticoagulation, this is complicated by acute normocytic anemia. With NSAID use. Suspected NSAID induced gastritis, upper GI bleed. Started on PPI. Hemoglobin appears to perhaps stabilized. Continue PPI. If no further decreasing, continue anticoagulation, and follow-up outpatient for possible endoscopic reevaluation. Otherwise may need endoscopy in the hospital. Due to risk of recurrent stroke requires anticoagulation. Monitor closely. Status: Acute (2) Acute CVA (cerebrovascular accident): Symptoms appear stable. Carotid Doppler with less than 50% stenosis bilaterally. Echocardiogram Requiring anticoagulation. Complicated by acute normocytic anemia. Possible NSAID induced gastritis, GI bleeding. Residual left-sided facial droop, mild dysmetria, appears to have issues with her balance although is also generally weak. No vertigo. Mild dysphagia on speech therapy assessment. Continue ST. Trial of diet. A1c 5.7. Permissive hypertension. Carotid Doppler, echocardiography. Continue aspirin, add statin. Status: Acute (3) Bradycardia: Transient bradycardia down into the 50s. On sotalol. Appears to be little bit better in the 60s today, up to 70. Possibly after placement of hypokalemia, hypomagnesemia. Monitor for now. If worsening consider decreasing sotalol dose. Replace electrolytes as needed. Status: Acute (4) Atrial fibrillation: Continue sotalol. Restarted on Eliquis. Status: Acute (5) Diabetes: Sliding scale insulin. Metformin on hold for now. Status: Acute (6) HTN (hypertension): Blood pressures Status: Acute (7) Diastolic CHF: Appears to be compensated, monitor blood pressures. Status: Acute (8) Declining functional status: Son states she was previously independently functional, very sharp, now with quite significant functional decline. During my visit she requires 2 person assist to transfer from chair to bed several steps, and has to be lifted up into the bed. UA appears without suggestion of UTI. TSH normal. Urine drug screen unremarkable. Acute CVA with left-sided weakness, some loss of coordination, mild dysmetria. Noted dysphagia. Lives alone and at this time does not have anyone who could provide assistance. PT and OT. Discharge planning. Status: Acute Attestations Medical Necessity Statement*: Continue admission for assessment management of acute anemia, requiring anticoagulation, with NSAID induced gastritis, GI bleed, status post CVA, with underlying atrial fibrillation, with noted bradycardia. Disposition planning. Coding Level of Care Code Acute Resaw Carriage Operator for Chg Fwd Diagnoses Acute anemia D64.9 Acute CVA (cerebrovascular accident) I63.9 Bradycardia R00.1 Atrial fibrillation I48.91 Diabetes E11.9 HTN (hypertension) I10 Diastolic CHF I50.30 Declining functional status R53.81
[2020-08-29 11:05] LABS: Basophils # 0.1 10^3/uL (0.0-0.1); Basophils % 0.9 %; Eosinophils # 0.1 10^3/uL (0.0-0.8); Eosinophils % 1.2 %; Hematocrit 31.2 % (37.0-47.0); Hemoglobin 9.9 g/dL (11.5-15.3); Lymphocytes # 1.1 10^3/uL (0.8-4.8); Lymphocytes % 15.6 %; Mean Corpuscular HGB Conc 31.7 g/dL (30.0-36.0); Mean Platelet Volume 10.6 fL (7.4-10.4); Monocytes # 0.5 10^3/uL (0.2-0.9); Monocytes % 7.6 %; Neutrophils # 5.07 10^3/uL (1.8-7.7); Neutrophils % 74.1 %; Nucleated Red Blood Cells % 0 %; Platelet Count 222 10^3/cmm (130-400); Red Blood Count 3.67 10^6/uL (4.1-5.3); Red Cell Distribution Width 14.3 % (12.1-15.1); White Blood Count 6.8 10^3/uL (4.0-10.0)
[2020-08-29 12:27] LABS: Alanine Aminotransferase 10 U/L (0-33); Albumin Level 3.2 g/dL (3.5-5.2); Alkaline Phosphatase 51 IU/L (35-105); Anion Gap 11.9 (5-19); Aspartate Amino Transferase 15 U/L (0-32); Blood Urea Nitrogen 11 mg/dL (8-23); Calcium 8.4 mg/dL (8.5-10.5); Carbon Dioxide 24 mmol/L (22-29); Chloride 104 mmol/L (98-107); Creatinine Clr Calc Pharmacy 46.9729; Globulin 2.8 g/dL (1.3-4.6); Glucose 177 mg/dL (65-115); Osmolality Calculated 286 mOsm/kg (285-295); Potassium 3.9 mmol/L (3.5-5.1); Sodium 136 mmol/L (136-145); Total Bilirubin 0.4 mg/dL (0.15-1.2)
[2020-08-29] MEDS: fixodent 39 gm Tube 1 APPLIC DENTAL (15:17)
[2020-08-29] MEDS: sodium chloride 0.9% 1,000 ML 50 ML IV (17:31)
[2020-08-29 17:35] LABS: Glucose Point of Care 162 mg/dL (70-110)
[2020-08-29 20:42] LABS: Glucose Point of Care 164 mg/dL (70-110)
[2020-08-29] MEDS: atorvastatin 40 mg Tablet PO (20:48)
[2020-08-29] MEDS: trazodone 50 mg Tablet 25 MG PO (23:13)
[2020-08-30 04:00] VITALS: BP 164/81; PULSE 70; RESP 16; TEMP 37.3; O2SAT 97
[2020-08-30 06:00] VITALS: PULSE 63
[2020-08-30] MEDS: sotalol 80 mg Tablet PO (06:10)
[2020-08-30 06:34] LABS: Glucose Point of Care 131 mg/dL (70-110)
[2020-08-30 07:16] VITALS: BP 168/76; PULSE 59; RESP 16; TEMP 36.6; O2SAT 99
--- NOTE | 2020-08-30 07:17 | PC.NURSE ---
Reported patients vitals that are out of range to her nurse.
[2020-08-30] MEDS: aspirin 81 mg EC Tablet 162 MG PO (07:45)
[2020-08-30] MEDS: apixaban 5 mg Tablet PO (07:45)
[2020-08-30] MEDS: pantoprazole DR 40 mg Tablet PO (07:45)
--- NOTE | 2020-08-30 10:05 | PC.SOCIAL ---
Pg 2 IMM Explained to pt Pg 2 IMM. No questions voiced. Provided pt a copy. Initialed, dated, & timed a copy & placed in chart.
--- NOTE | 2020-08-30 10:26 | PM.DCS ---
Discharge Providers Date of Admission: 08/27/20 19:46 Date of Discharge: August 30, 2020 Attending Provider at Admission: Efrain Calderon Attending Provider at Discharge: Alexey Scott Primary Care Provider: Jameel Scott MD Diagnoses at Discharge Discharge Diagnosis (1) Acute anemia: Status: Acute (2) Acute CVA (cerebrovascular accident): Status: Acute (3) Bradycardia: Status: Acute (4) Atrial fibrillation: Status: Acute (5) Diabetes: Status: Acute (6) HTN (hypertension): Status: Acute (7) Diastolic CHF: Status: Acute (8) Declining functional status: Status: Acute Reason for Visit Reason for Visit: FALL/ WEAKNESS Hospital Course Hospital Course Pleasant 85-year-old lady with history of atrial fibrillation, history of GI bleeding following which anticoagulation was discontinued, diabetes, CHF, HTN, previously independent, was admitted after was found on the floor by her son, reportedly had said on the floor where she thought she was going to lose urinary continence, and then felt too weak to get up. Was noted to have facial droop, unilateral weakness. The son reported thought perhaps weakness was on the right side, although through the hospital stay and on admission noted left-sided facial droop, left side mild weakness, some loss of coordination, difficulties with balance, although no vertigo, perhaps in large part due to generalized weakness and deconditioning. She was out of the window for TPA. Head CT showed acute or subacute infarct of right basal ganglia region. Old right frontal infarct. Other tests included carotid Doppler which showed less than 50% stenosis bilaterally, echocardiogram which showed EF 55%, grade 2 diastolic dysfunction, mildly thickened mitral valve, moderate MVR mild AVR. No significant change from prior. She was restarted on anticoagulation with Eliquis. Monitored in the hospital and did develop acute anemia, with hemoglobin declining from 11.7-9.9. She was started on twice daily PPI due to history of NSAID use. She and her son were counseled on avoidance of NSAIDs. After initiation of PPI hemoglobin appears to have stabilized around 10 and remained there. Please recheck hemoglobin in 3-4 days. Consider referral for additional discomfort evaluation once she is out of acute condition. Avoid NSAIDs. She was also monitored on telemetry with finding of mild bradycardia, heart rates in the high 50s, low 60s. She continues on sotalol for atrial fibrillation. Please continue to monitor heart rate. She is asked to follow-up with cardiology regarding atrial fibrillation, heart rate, MVR, AVR. On assessment by anesthesia required dysphagia level 2 diet. She is asked to follow-up with neurology in office. She states she got tired, but worked well with physical therapy. Today she is feeling well, without any new changes. She is ready to proceed to rehabilitation. Physical Exam Const: COMMON NORMALS: no acute distress, patient oriented x3 and alert GENERAL APPEARANCE: frail appearing ORIENTATION/CONSCIOUSNESS: Yes awake OTHER: Reclined in bed. HENMT: COMMON NORMALS: oropharynx normal Neck/C-Spine: COMMON NORMALS: no meningeal signs and no JVD Resp: COMMON NORMALS: normal respiratory effort and clear to auscultation bilaterally AUSCULTATION: clear to auscultation bilaterally Cardio: COMMON NORMALS: no JVD, regular rhythm, S1 normal heart sound present, S2 normal heart sound present and No murmurs present (Cardio) RHYTHM: regular rhythm HEART SOUNDS: S1 normal heart sound present and S2 normal heart sound present GI: COMMON NORMALS: Normal to inspection, nondistended, normoactive bowel sounds present, Soft to palpation and non-tender PALPATION: Yes Soft to palpation Extremity: COMMON NORMALS: no joint enlargement and no pedal edema Neuro: COMMON NORMALS: patient oriented x3 and moves all extremities SENSORIUM/ORIENTATION: Yes alert MENINGEAL SIGNS: Yes no meningeal signs CRANIAL NERVES: Yes other (Mild left-sided facial droop.) COORDINATION/BALANCE: No [id number] test normal (Minimal dysmetria on the left) SENSORY EXAM: Yes Normal double simultaneous stimulation for sensation; No sensory level loss detected MOTOR EXAM: Other motor observations present (3/5 power) COORDINATION: [id number] test abnormal (Minimal dysmetria on the left) OTHER: Does not have trouble tracking. Visual bills full to confrontation. Skin: COMMON NORMALS: no rashes or lesions noted GENERAL SKIN EXAM: no rashes or lesions noted Discharge Data Data Completed and Pending: Completed Studies During Hospitalization Category Date Time Status CT head wo con* [id number] Stat Cat Scan 08/27/20 18:46 Completed XR chest 1V michelle ble [id number] Stat Exams 08/27/20 18:46 Completed CV carotid duplex BI* [id number] Urgent Ultrasound 08/28/20 05:00 Completed CV echo complete* [id number] Routine Ultrasound 08/28/20 05:00 Completed Pending at discharge Category Date Time Status Immunochemical Fe galen OCB Routine Lab 08/28/20 20:09 Uncollected Labs from last 24 hours 08/30/20 08/29/20 08/29/20 06:28 20:40 17:18 WBC RBC Hgb Hct MCV MCH MCHC RDW Plt Count MPV Neut % (Auto) Lymph % (Auto) [place] % (Auto) Eos % (Auto) Baso % (Auto) Neut # (Auto) Lymph # (Auto) [place] # (Auto) Eos # (Auto) Baso # (Auto) Nucleated RBC % (a uto) Nucleated RBCs # Sodium Potassium Chloride Carbon Dioxide Anion Gap BUN Creatinine GFR Calculation Glucose POC Glucose 131 H 164 H 162 H Calculated Osmolal ity Calcium Total Bilirubin AST ALT Alkaline Phosphata se Total Protein Albumin Globulin 08/29/20 08/29/20 10:50 10:50 WBC 6.8 RBC 3.67 L Hgb 9.9 L Hct 31.2 L MCV 85.0 MCH 27.0 L MCHC 31.7 RDW 14.3 Plt Count 222 MPV 10.6 H Neut % (Auto) 74.1 Lymph % (Auto) 15.6 [place] % (Auto) 7.6 Eos % (Auto) 1.2 Baso % (Auto) 0.9 Neut # (Auto) 5.07 Lymph # (Auto) 1.1 [place] # (Auto) 0.5 Eos # (Auto) 0.1 Baso # (Auto) 0.1 Nucleated RBC % (a uto) 0 Nucleated RBCs # 0.0 Sodium 136 Potassium 3.9 Chloride 104 Carbon Dioxide 24 Anion Gap 11.9 BUN 11 Creatinine 0.7 GFR Calculation Not Reportable Glucose 177 H POC Glucose Calculated Osmolal ity 286 Calcium 8.4 L Total Bilirubin 0.4 AST 15 ALT 10 Alkaline Phosphata se 51 Total Protein 6.0 L Albumin 3.2 L Globulin 2.8 Vitals: Last Vital Signs Temp 97.8 F 08/30/20 07:16 Pulse 59 L 08/30/20 07:16 Resp 16 08/30/20 07:16 BP 168/76 08/30/20 07:16 Pulse Ox 99 08/30/20 07:16 Discharge Plan Discharge Patient Disposition: Home Condition: Stable Prescriptions: New Eliquis 5 mg Tablet 5 mg PO BID@0900,2100 Qty: 60 RF: 0 aspirin 81 mg Tablet,Delayed Release (Dr/Ec) 81 mg PO DAILY Qty: 30 RF: 0 atorvastatin 40 mg Tablet 40 mg PO BEDTIME Qty: 30 RF: 0 pantoprazole 40 mg Tablet,Delayed Release (Dr/Ec) 40 mg PO BID Qty: 60 RF: 0 Continued metformin 500 mg tablet 500 mg PO BID@07,18 RF: 0 sotalol 80 mg tablet 80 mg PO BID@0700,1800 RF: 0 Changed furosemide 40 mg tablet 40 mg PO DAILY@0700 PRN (Reason: Edema) Qty: 0 RF: 0 Klor-Con M20 20 mEq tablet,ER particles/crystals 10 meq PO DAILY@0700 Qty: 0 RF: 0 Discharge Orders: Discharge Order (Routine); Ordered 08/30/20 Ordered By: Alexey Scott Referrals: Genevieve Cevallos MD [Physician] - 1 week (CVA) Zheng Peterson M.D [Physician] - 2 weeks (AFib, on sotalol) Jameel Scott MD [Primary Care Provider] - 4-7 days Discharge Diet: As Directed Discharge Activity: Increase activity as tolerated and As per PT/OT instructions Patient Instructions: Aspirin (By mouth), Atorvastatin (By mouth), Pantoprazole (By mouth), Apixaban (By mouth), Atrial Fibrillation (GEN), Gastritis (GEN), Ischemic Stroke (GEN), Chronic Dysphagia (GEN), Self Care Measures After a Stroke (DC), Fall Prevention (GEN), Stroke Stoplight Activity Restrictions/Additional Instructions: Maintain dysphagia level 2 diet. Please continue working with speech therapy. Please note you are started on a blood thinner medication which will increase your risk of bleeding. Please avoid any injury. Maintain strict fall precautions. Please follow-up with cardiology in office with regards to atrial fibrillation. Please monitor heart rate 3 times daily, write down values to bring to your appointment. If bradycardia becomes more pronounced, discussed with cardiology reduction of dose of sotalol. Please follow-up blood count in 4 days, and then as appropriate due to acute anemia after initiation of anticoagulation, history of GI bleeding. Please discontinue use of any NSAIDs like ibuprofen, etc. These may contribute to recurrence of GI bleeding. Consider referral for additional anoscopic evaluation once out of acute episode of illness. Discharge Attestations Time Spent in Discharge Care*: greater than 30 min Quality Metrics Clinical Quality Measures During this hospital stay, did patient experience: Stroke Contraindication to Antithrombotic: Antithrombotic prescribed Contraindication to Anticoagulation: Anticoagulation prescribed Contraindication to Statin: Statin prescribed Coding Level of Care Code Acute Supervising Film Or Videotape Editor for g Fwd Diagnoses Acute anemia D64.9 Acute CVA (cerebrovascular accident) I63.9 Bradycardia R00.1 Atrial fibrillation I48.91 Diabetes E11.9 HTN (hypertension) I10 Diastolic CHF I50.30 Declining functional status R53.81
[2020-08-30 11:12] VITALS: BP 149/57; PULSE 62; RESP 16; TEMP 37.2; O2SAT 98
[2020-08-30 11:22] LABS: Glucose Point of Care 147 mg/dL (70-110)
[2020-08-30 12:35] LABS: SARS Covid-2 Antigen Negative (Negative)
[2020-08-30 13:00] VITALS: BP 149/57; PULSE 62; RESP 16; TEMP 37.2; O2SAT 98
== END 2020-08-30 13:00 | disposition skilled nursing facility (03) | DRG 65 ==
LOC: ER 20:17 → MEDSURG 21:09
PROVIDERS: Admitting Provider Internal Medicine; Emergency Provider Family Medicine; PCP Family Medicine; Visit Provider Internal Medicine
DX: I63.9 Cerebral infarction, unspecified (principal); G81.94 Hemiplegia, unspecified affecting left nondominant side; I48.20 Chronic atrial fibrillation, unspecified; I50.30 Unspecified diastolic (congestive) heart failure; K92.2 Gastrointestinal hemorrhage, unspecified; R47.81 Slurred speech; R29.810 Facial weakness; R13.10 Dysphagia, unspecified; R29.706 NIHSS score 6; E11.9 Type 2 diabetes mellitus without complications; R29.6 Repeated falls; Z86.73 Personal history of transient ischemic attack (TIA), and cerebral infarction without residual deficits; I11.0 Hypertensive heart disease with heart failure; D64.9 Anemia, unspecified; K29.70 Gastritis, unspecified, without bleeding; T39.395A Adverse effect of other nonsteroidal anti-inflammatory drugs [NSAID], initial encounter; E87.6 Hypokalemia; E83.42 Hypomagnesemia; I08.0 Rheumatic disorders of both mitral and aortic valves; Z79.84 Long term (current) use of oral hypoglycemic drugs
CPT/HCPCS: 36415; 36416; 70450; 71045; 80048; 80053; 80061; 80306; 81003; 82962; 83036; 83735; 84443; 85018; 85025; 85610; 85730; 87426; 92523; 92610; 93005; 93306; 93880; 96372; 96374; 96375; 97116; 97161; 97167; 97530; 97535; 99285; J0131; J1815; J2270; J2405; J3475; J7030

== ENCOUNTER → 2021-10-15 08:44 | Outpatient (BNVA) | payer MEDICARE, MEDICAID, SELFPAY | PROVIDERS: PCP Family Medicine; Visit Provider Internal Medicine | DX: Z53.9 Procedure and treatment not carried out, unspecified reason (principal) ==

== ENCOUNTER → 2021-10-19 12:27 | Outpatient (BNVA) | payer MEDICARE, MEDICAID, SELFPAY | PROVIDERS: PCP Family Medicine; Visit Provider Internal Medicine Cardiovascular Disease | DX: I48.91 Unspecified atrial fibrillation (principal); Z79.01 Long term (current) use of anticoagulants; Z86.73 Personal history of transient ischemic attack (TIA), and cerebral infarction without residual deficits; R53.81 Other malaise; E11.9 Type 2 diabetes mellitus without complications; I11.0 Hypertensive heart disease with heart failure; I50.30 Unspecified diastolic (congestive) heart failure; Z79.84 Long term (current) use of oral hypoglycemic drugs | CPT/HCPCS: 99214 ==

== ENCOUNTER 2022-01-17 10:32 | Emergency (ER) | payer MEDICARE, MEDICAID, SELFPAY ==
--- NOTE | 2022-01-17 10:38 | ECG_ITS ---
[facility] Test Date: 2022-01-17 Pat Name: Asia Arroyo Department: Room: Gender: Female Sales Order Processor: : 1935 Requested By: Sahil Smith Order Number: [id number] Casey MD: J Luis Ho M.D. Measurements Intervals [place] Rate: 67 P: 61 [place]: 182 QRS: 64 QRSD: 84 T: 53 QT: 450 QTc: 478 Interpretive Statements SINUS RHYTHM WITH FREQUENT SUPRAVENTRICULAR PREMATURE COMPLEXES MODERATE ST DEPRESSION [0.05+ mV ST DEPRESSION] Compared to ECG 08/27/2020 20:50:56 No significant changes Electronically Signed On 01-17-2022 20:58:12 CDT by J Luis Ho M.D. [id number]
[2022-01-17 10:53] VITALS: BP 119/68; PULSE 62; RESP 18; TEMP 36.8; O2SAT 96; BMI 21.7
[2022-01-17 11:00] LABS: Basophils # 0.1 10^3/uL (0.0-0.1); Basophils % 0.5 %; Hematocrit 31.8 % (37.0-47.0); Hemoglobin 11.1 g/dL (11.5-15.3); Lymphocytes # 0.6 10^3/uL (0.8-4.8); Lymphocytes % 5.3 %; Mean Corpuscular HGB Conc 34.9 g/dL (30.0-36.0); Mean Corpuscular Hemoglobin 27.8 pg (28.0-34.0); Mean Corpuscular Volume 79.7 fl (81-99); Mean Platelet Volume 10.9 fL (7.4-10.4); Monocytes # 0.6 10^3/uL (0.2-0.9); Monocytes % 5.5 %; Neutrophils # 9.76 10^3/uL (1.8-7.7); Neutrophils % 88.1 %; Nucleated Red Blood Cells % 0 %; Platelet Count 301 10^3/cmm (130-400); Red Blood Count 3.99 10^6/uL (4.1-5.3); Red Cell Distribution Width 13.7 % (12.1-15.1); White Blood Count 11.1 10^3/uL (4.0-10.0)
--- NOTE | 2022-01-17 11:02 | CT_ITS ---
WS: [id number] CT CERVICAL SPINE HISTORY: fall TECHNIQUE: Contiguous 2.5 mm axial imaging performed through the entire cervical spine. Sagittal and coronal reformats also performed. All CT scans at [facility] use at least one of these dose o ptimization techniques: automated exposure control; mA and/or kV adjustment per patient size (include s targeted exams where dose is matched to clinical indication); or iterative reconstruction. DLP: 194.27 mGy.cm COMPARISON: None available. Increased cervical lordosis and scoliosis. Craniocervical junction is intact. Lateral masses of C1 an d C2 are aligned. Odontoid is intact. Degenerative changes surrounding the odontoid with narrowing of the predental space. C3 anterolisthesis by 2 mm. Disc spaces are narrowed throughout most significan t at C6-7. Facet joints are narrowed also. No fractures are identified. Facet joints are narrowed throughout with marked facet joint hypertrophy. Moderate RIGHT facet joint stenosis C3-4 and C4-5. No large disc protrusions. No cord compression. Extensive calcifications bilaterally in the thyroid. Lung apices are clear. CT/CT cervical spin wo con* [id number] IMPRESSION: 1. No acute cervical spine fracture. 2. 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 3. No acute fracture identified. 4. 2 mm anterolisthesis of C3 5. Thyroid calcifications. Calcifications can be related to thyroid carcinoma. For further evaluation if clinically thought necessary thyroid ultrasound can be obtained on a nonurgent basis.
[2022-01-17 11:05] VITALS: BP 172/61; PULSE 59; RESP 18; O2SAT 94
--- NOTE | 2022-01-17 11:06 | CT_ITS ---
WS: [id number] CT HEAD NONCONTRAST HISTORY: fall TECHNIQUE: Contiguous axial imaging performed through the brain in 2.5 mm imaging. Bone and soft tiss ue windows. Sagittal and coronal reformats reviewed. All CT scans at [facility] use at least one of these dose optimization techniques: automated exposure control; mA and/or kV adjustment per pa tient size (includes targeted exams where dose is matched to clinical indication); or iterative recon struction. DLP: 1064.88 mGy.cm COMPARISON: 08/27/2020 No acute intracranial hemorrhage, midline shift or mass effect. Mild atrophy and small vessel ischemic disease. Prior RIGHT frontal lobe infarct. Additional lacunar infarcts in the basal ganglia. Larger infarct along the RIGHT insular ribbon. There is been mild prog ression of the volume loss and infarcts since 08/27/2020. No acute interval change. Ventricles: Mild ventriculomegaly. Slight ex vacuole dilatation of the RIGHT lateral ventricle due t o adjacent chronic infarcts. Scattered calcification in the vertebral arteries and atherosclerotic calcification is more extensive involving the carotid arteries the cavernous sinuses and supraclinoid. Paranasal sinuses: As visualized are clear. Mastoid air cells: Well pneumatized. Calvarium and scalp: Skull is intact with no soft tissue edema or swelling. CT/CT head wo con* [id number] IMPRESSION: 1. No acute intracranial hemorrhage or edema. 2. Volume loss in the RIGHT cerebrum due to a prior RIGHT frontal lobe infarct and multiple small lacunar infarcts in the RIGHT basal ganglia. No new area of sulcal effacement or infarct. 3. No skull fracture.
[2022-01-17 11:22] LABS: Alanine Aminotransferase 22 U/L (0-33); Albumin Level 4.1 g/dL (3.5-5.2); Alkaline Phosphatase 79 IU/L (35-105); Anion Gap 16.6 (5-19); Aspartate Amino Transferase 34 U/L (0-32); Blood Urea Nitrogen 10 mg/dL (8-23); Calcium 9.1 mg/dL (8.5-10.5); Carbon Dioxide 25 mmol/L (22-29); Chloride 86 mmol/L (98-107); Creatinine Clr Calc Pharmacy 43.6307; Globulin 2.7 g/dL (1.3-4.6); Glucose 132 mg/dL (65-115); Osmolality Calculated 259 mOsm/kg (285-295); Potassium 3.6 mmol/L (3.5-5.1); Sodium 124 mmol/L (136-145); Total Bilirubin 0.8 mg/dL (0.15-1.2); Total Protein 6.8 g/dL (6.6-8.7)
[2022-01-17 11:30] LABS: Add Urine Microscopic? NO; Charge for UA Resulting for Rev
[2022-01-17 11:37] LABS: Bilirubin Urine Neg (Negative); Blood Urine Neg (Negative); Glucose Urine UA Norm (Normal); Ketones Urine Negative (Negative); Leukocyte Esterase Urine Negative (Negative); Nitrate Urine Negative (Negative); Protein Urine Neg (Negative); Sulfosalicylic Acid Urine Negative (Negative); Urine Appearance Clear (CLEAR); Urine Color Straw (Yellow); Urobilinogen Urine Norm (Negative); pH Urine 8 (5-7)
[2022-01-17 12:30] VITALS: BP 154/59; PULSE 63; O2SAT 94
[2022-01-17 13:00] VITALS: BP 143/60; PULSE 61; O2SAT 94
--- NOTE | 2022-01-17 13:06 | ED_ITS ---
HPI - Fall General: Chief Complaint: Fall Stated Complaint: FALL/ WEAKNESS Time Seen by Provider: 01/17/22 10:38 Source: patient Mode of arrival: EMS Limitations: no limitations History of Present Illness: 86-year-old female presents emergency room via EMS she had gotten up into her assisted living apartment stumbled and fell with her walker. She was found about 2 hours later she is not able to get herself up she did bump her head as she fell down states she hit her head more often as she was trying to get up there is no reported loss consciousness she did not have any chest pain or discomfort prior to the fall although after the fall she had a little bit of mild anterior chest wall discomfort. MD complaint: fall Onset (ago): minute(s) Fall from: standing Fall witnessed: no Place fall occurred: prison[facility] Loss of consciousness: None Prolonged down time: hour(s) (2) Symptoms prior to fall: none Context: tripped/slipped Location of injury: head Associated symptoms-after fall: Denies abdominal pain, chest pain, confusion, difficulty walking, headache(s), hematuria, lightheadedness, neck pain, numbness, short of breath, vertigo or weakness Review of Systems Const: Denies: fever(s), chills, body aches, change in appetite, fatigue or malaise ENMT: Denies: throat pain, ear or mastoid pain, nasal discharge or nasal congestion Card: Denies: chest pain, palpitations, irregular heart rhythm or lightheadedness Resp: Denies: dyspnea, productive cough or non-productive cough GI: Denies: abdominal pain, nausea or vomiting : Denies: flank pain, difficulty voiding, dysuria, urinary frequency, urinary urgency or hematuria Musc: Denies: neck pain Skin/Breast: Denies: rash or pruritus Neuro: Denies: headache(s), difficulty walking, vertigo or confusion PFSH ED PFSH: Medical History Acute CVA (cerebrovascular accident) Anticoagulation adequate with anticoagulant therapy Atrial fibrillation Bradycardia Diabetes Diastolic CHF HTN (hypertension) Surgical History S/P cataract extraction Family History Mother Diabetes Social History Smoking and tobacco status: never smoked Alcohol intake: never Lives independently: Yes Marital status: / Physical Exam Const: COMMON NORMALS: no acute distress GENERAL APPEARANCE: cooperative and comfortable ORIENTATION/CONSCIOUSNESS: Yes awake HENMT: COMMON NORMALS: normocephalic, atraumatic, external ears normal, EAC's normal, TM's normal bilaterally, Normal nasal mucous membranes and turbinates present, moist oral mucous membranes and oropharynx normal HEAD & SCALP: normocephalic and atraumatic NOSE: Normal nasal mucous membranes and tur binates present EXTERNAL EAR: Yes external ears normal EXTERNAL AUDITORY CANAL: EAC's normal TYMPANIC MEMBRANE: TM's normal bilaterally Neck/C-Spine: COMMON NORMALS: no JVD Resp: COMMON NORMALS: normal respiratory effort, No retractions, No use of accessory muscles and clear to auscultation bilaterally AUSCULTATION: clear to auscultation bilaterally Cardio: COMMON NORMALS: no JVD, regular rate, regular rhythm and No murmurs pr esent (Cardio) RATE: regular rate RHYTHM: regular rhythm GI: COMMON NORMALS: Soft to palpation and No hepatosplenomegaly present AUSCULTATION: Yes normoactive bowel sounds PALPATION: Yes Soft to palpation, No Tenderness to palpation present (GI), No Guarding due to palpation present (GI) and Yes No hepatosplenomegaly present Extremity: COMMON NORMALS: normal to inspection, capillary refill normal, no clubbing, cyanosis or edema, no calf tenderness and no pedal edema Skin: COMMON NORMALS: no rashes or lesions noted GENERAL SKIN EXAM: no rashes or lesions noted Course Vital Signs: Vital signs: Vital Signs Temperature 98.2 F 01/17/22 10:53 Pulse Rate 61 01/17/22 13:00 Respiratory Rate 18 01/17/22 11:05 Blood Pressure 143/60 01/17/22 13:00 Pulse Oximetry 94 01/17/22 13:00 MDM - Fall Medical Decision Making Full range of motion all extremities no evidence of fracture imaging labs reviewed with the patient we will [facility]. she does have some mild hyponatremia should have that rechecked within the next week. Medical Records I reviewed the patient's medical records. Lab Data I reviewed the patient's lab results. : 01/17/22 10:48 01/17/22 10:48 Radiology Impressions Cervical Spine CT 01/17/22 11:02 IMPRESSION: 1. No acute cervical spine fracture. 2. 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 3. No acute fracture identified. 4. 2 mm anterolisthesis of C3 5. Thyroid calcifications. Calcifications can be related to thyroid carcinoma. For further evaluation if clinically thought necessary thyroid ultrasound can be obtained on a nonurgent basis. Head CT 01/17/22 11:06 IMPRESSION: 1. No acute intracranial hemorrhage or edema. 2. Volume loss in the RIGHT cerebrum due to a prior RIGHT frontal lobe infarct and multiple small lacunar infarcts in the RIGHT basal ganglia. No new area of s ulcal effacement or infarct. 3. No skull fracture. Laboratory Results WBC 11.1 10^3/uL (4.0-10.0) H 01/17/22 10:48 RBC 3.99 10^6/uL (4.1-5.3) L 01/17/22 10:48 Hgb 11.1 g/dL (11.5-15.3) L 01/17/22 10:48 Hct 31.8 % (37.0-47.0) L 01/17/22 10:48 MCV 79.7 fl (81-99) L 01/17/22 10:48 MCH 27.8 pg (28.0-34.0) L 01/17/22 10:48 MCHC 34.9 g/dL (30.0-36.0) 01/17/22 10:48 RDW 13.7 % (12.1-15.1) 01/17/22 10:48 Plt Count 301 10^3/cmm (130-400) 01/17/22 10:48 MPV 10.9 fL (7.4-10.4) H 01/17/22 10:48 Neut % (Auto) 88.1 % 01/17/22 10:48 Lymph % (Auto) 5.3 % 01/17/22 10:48 [place] % (Auto) 5.5 % 01/17/22 10:48 Eos % (Auto) 0.0 % 01/17/22 10:48 Baso % (Auto) 0.5 % 01/17/22 10:48 Neut # (Auto) 9.76 10^3/uL (1.8-7.7) H 01/17/22 10:48 Lymph # (Auto) 0.6 10^3/uL (0.8-4.8) L 01/17/22 10:48 [place] # (Auto) 0.6 10^3/uL (0.2-0.9) 01/17/22 10:48 Eos # (Auto) 0.0 10^3/uL (0.0-0.8) 01/17/22 10:48 Baso # (Auto) 0.1 10^3/uL (0.0-0.1) 01/17/22 10:48 Nucleated RBC % (auto) 0 % 01/17/22 10:48 Nucleated RBCs # 0.0 /100WBC 01/17/22 10:48 Sodium 124 mmol/L (136-145) L 01/17/22 10:48 Potassium 3.6 mmol/L (3.5-5.1) 01/17/22 10:48 Chloride 86 mmol/L (98-107) L 01/17/22 10:48 Carbon Dioxide 25 mmol/L (22-29) 01/17/22 10:48 Anion Gap 16.6 (5-19) 01/17/22 10:48 BUN 10 mg/dL (8-23) 01/17/22 10:48 Creatinine 0.6 mg/dL (0.5-0.9) 01/17/22 10:48 GFR Calculation Not Reportable 01/17/22 10:48 Glucose 132 mg/dL (65-115) H 01/17/22 10:48 Calculated Osmolality 259 mOsm/kg (285-295) L 01/17/22 10:48 Calcium 9.1 mg/dL (8.5-10.5) 01/17/22 10:48 Total Bilirubin 0.8 mg/dL (0.15-1.2) 01/17/22 10:48 AST 34 U/L (0-32) H 01/17/22 10:48 ALT 22 U/L (0-33) 01/17/22 10:48 Alkaline Phosphatase 79 IU/L (35-105) 01/17/22 10:48 Total Protein 6.8 g/dL (6.6-8.7) 01/17/22 10:48 Albumin 4.1 g/dL (3.5-5.2) 01/17/22 10:48 Globulin 2.7 g/dL (1.3-4.6) 01/17/22 10:48 Urine Color Straw (Yellow) 01/17/22 11:15 Urine Appearance Clear (CLEAR) 01/17/22 11:15 Urine pH 8 (5-7) H 01/17/22 11:15 Ur Specific [place] 1.010 (1.005-1.030) 01/17/22 11:15 Urine Protein Neg (Negative) 01/17/22 11:15 Urine Glucose (UA) Norm (Normal) 01/17/22 11:15 Urine Ketones Negative (Negative) 01/17/22 11:15 Urine Blood Neg (Negative) 01/17/22 11:15 Urine Nitrate Negative (Negative) 01/17/22 11:15 Urine Bilirubin Neg (Negative) 01/17/22 11:15 Prot Sulfosalicylic Acd Negative (Negative) 01/17/22 11:15 Urine Urobilinogen Norm mg/dL (Negative) 01/17/22 11:15 Ur Leukocyte Esterase Negative (Negative) 01/17/22 11:15 Discharge Plan Discharge Patient Disposition: Home Clinical Impression: Fall Condition: Stable Prescriptions: No Action metformin 500 mg tablet 500 mg PO BID@07,18 0RF trazodone 50 mg tablet 50 mg PO BEDTIME 0RF furosemide 40 mg tablet 40 mg PO BID Qty: 180 3RF oxybutynin chloride 10 mg tablet extended release 24hr 10 mg PO BEDTIME 0RF Eliquis 5 mg Tablet 5 mg PO BID@0900,2100 Qty: 60 0RF aspirin 81 mg Tablet,Delayed Release (Dr/Ec) 81 mg PO DAILY Qty: 30 0RF atorvastatin 40 mg Tablet 40 mg PO BEDTIME Qty: 30 0RF pantoprazole 40 mg Tablet,Delayed Release (Dr/Ec) 40 mg PO BID Qty: 60 0RF potassium chloride [Klor-Con M20] 20 mEq tablet,ER particles/crystals 10 meq PO DAILY@0700 Qty: 0 0RF Tylenol 325 mg Tablet 325 mg PO QID PRN (Reason: Pain) 0RF sotalol 80 mg Tablet 80 mg PO BID 0RF Senna-S 8.6-50 mg Tablet 1 tab-cap PO BID 0RF dicyclomine 20 mg Tablet 20 mg PO BID 0RF FeroSul 325 mg (65 mg iron) Tablet 325 mg PO DAILY 0RF Miralax 17 gram/dose Powder 4 g PO DAILY PRN (Reason: Constipation) 0RF Culturelle 10 billion cell Capsule 1 cap PO DAILY 0RF Belsomra 10 mg tablet 10 mg PO BEDTIME 0RF Discharge Orders: Discharge ED (Routine); Ordered 01/17/22 Ordered By: Sahil Del Real Referrals: Jameel Scott MD [Primary Care Provider] - Discharge Diet: Usual diet Discharge Activity: Resume usual activity Coding Level of Care Code ED Mobile Phone Salesperson for Juang Fwd Exam Comprehensive
== END 2022-01-17 13:57 | disposition home or self-care (01) ==
PROVIDERS: Emergency Provider Family Medicine; PCP Family Medicine
DX: Z03.89 Encounter for observation for other suspected diseases and conditions ruled out (principal); Z79.84 Long term (current) use of oral hypoglycemic drugs; Z79.01 Long term (current) use of anticoagulants; Z86.73 Personal history of transient ischemic attack (TIA), and cerebral infarction without residual deficits; E11.9 Type 2 diabetes mellitus without complications; I11.0 Hypertensive heart disease with heart failure; I50.9 Heart failure, unspecified; W01.0XXA Fall on same level from slipping, tripping and stumbling without subsequent striking against object, initial encounter
CPT/HCPCS: 70450; 72125; 80053; 81003; 85025; 93005; 99285